=== PATIENT | male | born 1985 | race Caucasian/White ===

== ENCOUNTER 2016-11-03 16:41 | Emergency (ER) | payer MEDICARE, MEDICAID ==
[~2016-11-03] VITALS: Ht 180.3 cm; Wt 77.7 kg
[~2016-11-03 16:41] MED LIST: BACTRIM DS 8001 TAB PO
[2016-11-03] MEDS ORDERED: LEVAQUIN 5500 MG/TA1 PO (17:00)
[2016-11-03] MEDS ORDERED: SEPTRA DS 8001 TAB PO (18:12)
[2016-11-03 18:45] VITALS: BP 122/72
== END 2016-11-03 18:45 | disposition home or self-care (01) ==
LOC: ED 16:41
DX: L02.511 Cutaneous abscess of right hand (principal)

== ENCOUNTER → 2018-08-22 | Outpatient (CLI) | payer MEDICARE, MEDICAID ==
[~2018-08-22] MED LIST changes: +LEVAQUIN 5500 MG/TA1 PO; +SEPTRA DS 8001 TAB PO
== END ==
LOC: LAB 19:24
DX: L02.92 Furuncle, unspecified (principal)

== ENCOUNTER 2018-11-22 13:02 | Emergency (ER) | payer MEDICARE, MEDICAID ==
[~2018-11-22] VITALS: Ht 180.3 cm; Wt 77.7 kg
[2018-11-22 13:35] LABS: HEMATOCRIT 40.8 % (42.0-52.0); HEMOGLOBIN 13.8 g/dL (13.5-18.0); MEAN CELL VOLUME 87 fl (78-100); MEAN CORPUSCULAR HEMOGLOBIN 30 pg (27-31); MEAN CORPUSCULAR HGB CONC 34 g/dL (33-37); MEAN PLATELET VOLUME 9.7 fl (7.4-10.4); PLATELET COUNT 145 K/mm3 (130-400); RED BLOOD COUNT 4.68 M/mm3 (4.20-5.60); WHITE BLOOD COUNT 7.2 K/mm3 (4.8-10.8)
[2018-11-22 14:05] LABS: LYMPHOCYTE 23 % (20-51); MONOCYTE 8 % (3-10); NEUTROPHILS 69 % (42-75)
[2018-11-22 16:01] VITALS: BP 117/55
== END 2018-11-22 15:58 | disposition home or self-care (01) ==
LOC: ED 13:02
PROVIDERS: Family Medicine
DX: B34.9 Viral infection, unspecified (principal); F17.210 Nicotine dependence, cigarettes, uncomplicated; Z86.69 Personal history of other diseases of the nervous system and sense organs
CPT/HCPCS: J1885; J7030

== ENCOUNTER 2023-10-10 13:10 | Emergency (ER) | payer MEDICARE, MEDICAID ==
[~2023-10-10] VITALS: Ht 180.3 cm; Wt 86.4 kg
[~2023-10-10 13:10] MED LIST changes: +NORCO 325 MG-51 TA1 PO; +VALACYCLOVIR1 GM PO
[2023-10-10] MEDS ORDERED: Cefdinir 300 MG CAP PO ONE (14:00)
[2023-10-10] MEDS ORDERED: CEFDINIR300 MG PO (14:16)
[2023-10-10 14:45] VITALS: BP 138/80
== END 2023-10-10 15:18 | disposition home or self-care (01) ==
LOC: ED 13:10
DX: S91.332A Puncture wound without foreign body, left foot, initial encounter (principal); F17.220 Nicotine dependence, chewing tobacco, uncomplicated; Z23 Encounter for immunization; Z88.0 Allergy status to penicillin; W45.0XXA Nail entering through skin, initial encounter
CPT/HCPCS: 90715